=== PATIENT | male | born 1970 | race Caucasian/White ===

== ENCOUNTER 2019-05-01 19:09 | Inpatient (IN) | payer OTHER ==
[2019-05-01 19:58] VITALS: BMI 22.4
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
[2019-05-01] MEDS ORDERED: MAGNESIUM HYDROX 2400MG/30ML ORAL SUSPENSION 30 ML CUP PO PRN (23:43)
[2019-05-01] MEDS ORDERED: MELATONIN 5 MG TABLETS PO PRN (23:43)
[2019-05-01] MEDS ORDERED: BISMUTH SUBSALICYLATE 524 MG/30 ML UD PO PRN (23:43)
[2019-05-01] MEDS ORDERED: MAG HYDROX/AL HYDROX/SIMETH 30 ML UNIT-DOSE CUP PO PRN (23:43)
[2019-05-01] MEDS ORDERED: ACETAMINOPHEN 325 MG TABLET (FP) PO PRN ×2 (23:43)
[2019-05-01] MEDS ORDERED: METHOCARBAMOL 500 MG TABLET PO PRN (23:43)
[2019-05-01] MEDS ORDERED: hydrOXYzine PAMOATE 25 MG CAPSULE (FP) PO PRN (23:43)
[2019-05-01] MEDS ORDERED: IBUPROFEN 400 MG TABLET (FP) PO PRN (23:43)
[2019-05-01] MEDS ORDERED: MAGNESIUM CITRATE 300 ML BOTTLE PO PRN (23:43)
[2019-05-02] MEDS: chlordiazePOXIDE HCL 25 MG CAPSULE PO PRN (01:04)
[2019-05-02] MEDS: chlordiazePOXIDE HCL 25 MG CAPSULE PO SCH ×4 (05:10→22:12)
[2019-05-02 09:58] LABS: HEMATOCRIT 39.7 % (35.4-49); HEMOGLOBIN 13.6 GM/dL (11.7-16.9); MCH 35.3 pg (25.7-33.7); MCHC 34.3 g/dl (32.0-35.9); MEAN CELL VOLUME 102.8 fl (80-96); MEAN PLT VOLUME 8.4 fl (7.5-11.1); PLATELET COUNT 254 K/MM3 (134-434); RBC 3.86 M/mm3 (4.00-5.60); RDW 12.5 % (11.9-15.9); WHITE BLOOD COUNT 3.7 K/mm3 (4.0-10.0)
[2019-05-02 10:12] LABS: ALBUMIN 3.7 g/dl (3.4-5.0); BILIRUBIN,TOTAL 0.3 mg/dL (0.2-1); BLOOD UREA NITROGEN 11.9 mg/dL (7-18); CREATININE 0.8 mg/dL (0.55-1.3); POTASSIUM 3.8 mmol/L (3.5-5.1); TOT PROT 6.3 g/dl (6.4-8.2)
[2019-05-02] MEDS: PRENATAL VITAMINS W/ FOLIC ACID TABLET (FP) PO SCH (10:17)
--- NOTE | 2019-05-02 10:20 | PN ---
S CIWA - CIWA Score Nausea/Vomitin-Mild Nausea/No Vomiting Muscle Tremors: 4-Moderate,w/Arms Extend Anxiety: 3 Agitation: 3 Paroxysmal Sweats: 2 Orientation: 0-Oriented Tacttile Disturbances: 1-Very Mild Itch/Numbness Auditory Disturbances: 0-None Visual Disturbances: 0-None Headache: 1-Very Mild CIWA-Ar Total Score: 15 BHS Progress Note (SOAP) Subjective: 48 years old male admitted on 05/01/19 for alcohol withdrawal sx management treated with librium detox regimen ate breakfast ambulating on hallway discuss aftercare with staff patient is in good spirit to detox off from alcohol Objective: 05/02/19 10:19 Vital Signs Temperature 98.4 F 05/02/19 09:08 Pulse Rate 87 05/02/19 09:08 Respiratory Rate 18 05/02/19 09:08 Blood Pressure 128/78 05/02/19 09:08 O2 Sat by Pulse Oximetry (%) Laboratory Last Values WBC 3.7 K/mm3 (4.0-10.0) L 05/02/19 08:00 RBC 3.86 M/mm3 (4.00-5.60) L 05/02/19 08:00 Hgb 13.6 GM/dL (11.7-16.9) 05/02/19 08:00 Hct 39.7 % (35.4-49) 05/02/19 08:00 MCV 102.8 fl (80-96) H 05/02/19 08:00 MCH 35.3 pg (25.7-33.7) H 05/02/19 08:00 MCHC 34.3 g/dl (32.0-35.9) 05/02/19 08:00 RDW 12.5 % (11.9-15.9) D 05/02/19 08:00 Plt Count 254 K/MM3 (134-434) D 05/02/19 08:00 MPV 8.4 fl (7.5-11.1) 05/02/19 08:00 Sodium 140 mmol/L (136-145) 05/02/19 08:00 Potassium 3.8 mmol/L (3.5-5.1) 05/02/19 08:00 Chloride 102 mmol/L (98-107) 05/02/19 08:00 Carbon Dioxide 29 mmol/L (21-32) 05/02/19 08:00 Anion Gap 10 MMOL/L (8-16) 05/02/19 08:00 BUN 11.9 mg/dL (7-18) 05/02/19 08:00 Creatinine 0.8 mg/dL (0.55-1.3) 05/02/19 08:00 Est GFR (CKD-EPI)AfAm 122.43 05/02/19 08:00 Est GFR (CKD-EPI)NonAf 105.63 05/02/19 08:00 Random Glucose 118 mg/dL (74-106) H 05/02/19 08:00 Calcium 9.0 mg/dL (8.5-10.1) 05/02/19 08:00 Total Bilirubin 0.3 mg/dL (0.2-1) 05/02/19 08:00 AST 44 U/L (15-37) H 05/02/19 08:00 ALT 42 U/L (13-61) 05/02/19 08:00 Alkaline Phosphatase 84 U/L (45-117) 05/02/19 08:00 Total Protein 6.3 g/dl (6.4-8.2) L 05/02/19 08:00 Albumin 3.7 g/dl (3.4-5.0) 05/02/19 08:00 lab noted Assessment: 05/02/19 10:19 alcohol withdrawal sx Plan: continue librium detox regimen
--- NOTE | 2019-05-02 10:45 | EKG ---
Test Reason : Blood Pressure : / mmHG Vent. Rate : 071 BPM Atrial Rate : 071 BPM P-R Int : 140 ms QRS Dur : 092 ms QT Int : 404 ms P-R-T Axes : 074 075 097 degrees QTc Int : 439 ms NORMAL SINUS RHYTHM NORMAL ECG Confirmed by MD BECKY, ALBERTO ([id number]) on 05/02/2019 10:44:49 AM Referred By: Confirmed By:ALBERTO PENA MD
[2019-05-02] MEDS ORDERED: chlordiazePOXIDE HCL 25 MG CAPSULE PO ONE (14:00)
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
[2019-05-02] MEDS: busPIRone HCL 5 MG TABLET PO SCH (22:12)
[2019-05-02] MEDS: traZODone HCL 100 MG TABLET (FP) PO SCH (22:12)
[2019-05-02] MEDS: THIAMINE HCL 100 MG TABLET (FP) PO SCH (22:12)
[2019-05-03] MEDS: chlordiazePOXIDE HCL 25 MG CAPSULE PO SCH ×4 (05:24→22:02)
[2019-05-03] MEDS: PRENATAL VITAMINS W/ FOLIC ACID TABLET (FP) PO SCH (10:03)
[2019-05-03] MEDS: busPIRone HCL 5 MG TABLET PO SCH ×2 (10:03→22:02)
--- NOTE | 2019-05-03 13:16 | PN ---
[facility] CIWA - CIWA Score Nausea/Vomitin-Mild Nausea/No Vomiting Muscle Tremors: 3 Anxiety: 3 Agitation: 1-Slight > Activity Paroxysmal Sweats: 2 Orientation: 0-Oriented Tacttile Disturbances: 0-None Auditory Disturbances: 0-None Visual Disturbances: 0-None Headache: 1-Very Mild CIWA-Ar Total Score: 11 S Progress Note (SOAP) Subjective: 48 years old male admitted on 05/01/19 for alcohol withdrawal sx management treated with librium detox regimen feeling better today that slept through the night showered discuss aftercare with staff Objective: 05/03/19 13:31 Vital Signs Temperature 97.0 F L 05/03/19 13:09 Pulse Rate 78 05/03/19 13:09 Respiratory Rate 18 05/03/19 13:09 Blood Pressure 114/78 05/03/19 13:09 O2 Sat by Pulse Oximetry (%) Laboratory Last Values WBC 3.7 K/mm3 (4.0-10.0) L 05/02/19 08:00 RBC 3.86 M/mm3 (4.00-5.60) L 05/02/19 08:00 Hgb 13.6 GM/dL (11.7-16.9) 05/02/19 08:00 Hct 39.7 % (35.4-49) 05/02/19 08:00 MCV 102.8 fl (80-96) H 05/02/19 08:00 MCH 35.3 pg (25.7-33.7) H 05/02/19 08:00 MCHC 34.3 g/dl (32.0-35.9) 05/02/19 08:00 RDW 12.5 % (11.9-15.9) D 05/02/19 08:00 Plt Count 254 K/MM3 (134-434) D 05/02/19 08:00 MPV 8.4 fl (7.5-11.1) 05/02/19 08:00 Sodium 140 mmol/L (136-145) 05/02/19 08:00 Potassium 3.8 mmol/L (3.5-5.1) 05/02/19 08:00 Chloride 102 mmol/L (98-107) 05/02/19 08:00 Carbon Dioxide 29 mmol/L (21-32) 05/02/19 08:00 Anion Gap 10 MMOL/L (8-16) 05/02/19 08:00 BUN 11.9 mg/dL (7-18) 05/02/19 08:00 Creatinine 0.8 mg/dL (0.55-1.3) 05/02/19 08:00 Est GFR (CKD-EPI)AfAm 122.43 05/02/19 08:00 Est GFR (CKD-EPI)NonAf 105.63 05/02/19 08:00 Random Glucose 118 mg/dL (74-106) H 05/02/19 08:00 Calcium 9.0 mg/dL (8.5-10.1) 05/02/19 08:00 Total Bilirubin 0.3 mg/dL (0.2-1) 05/02/19 08:00 AST 44 U/L (15-37) H 05/02/19 08:00 ALT 42 U/L (13-61) 05/02/19 08:00 Alkaline Phosphatase 84 U/L (45-117) 05/02/19 08:00 Total Protein 6.3 g/dl (6.4-8.2) L 05/02/19 08:00 Albumin 3.7 g/dl (3.4-5.0) 05/02/19 08:00 RPR Titer Nonreactive (NONREACTIVE) 05/02/19 08:00 lab noted Assessment: 05/03/19 13:31 alcohol withdrawal sx Plan: continue librium detox regimen
[2019-05-03] MEDS: chlordiazePOXIDE HCL 25 MG CAPSULE PO PRN (14:35)
[2019-05-03] MEDS: traZODone HCL 100 MG TABLET (FP) PO SCH (22:02)
[2019-05-03] MEDS: THIAMINE HCL 100 MG TABLET (FP) PO SCH (22:02)
[2019-05-04] MEDS ORDERED: chlordiazePOXIDE HCL 10 MG CAPSULE PO PRN
[2019-05-04] MEDS: chlordiazePOXIDE HCL 10 MG CAPSULE PO SCH ×4 (05:53→22:27)
[2019-05-04] MEDS: busPIRone HCL 5 MG TABLET PO SCH ×2 (10:10→22:27)
[2019-05-04] MEDS: PRENATAL VITAMINS W/ FOLIC ACID TABLET (FP) PO SCH (10:10)
--- NOTE | 2019-05-04 13:22 | PN ---
[facility] CIWA - CIWA Score Nausea/Vomitin-Mild Nausea/No Vomiting Muscle Tremors: 2 Anxiety: 2 Agitation: 2 Paroxysmal Sweats: 1-Minimal Palms Moist Orientation: 0-Oriented Tacttile Disturbances: 0-None Auditory Disturbances: 0-None Visual Disturbances: 0-None Headache: 0-None Present CIWA-Ar Total Score: 8 S Progress Note (SOAP) Subjective: 48 YEARS OLD MALE ADMITTED ON 05/01/19 FOR ALCOHOL WITHDRAWAL SX MANAGEMENT TREATED WITH LIBRIUM DETOX REGIMEN FEELING BETTER TODAY SLEPT THROUGH THE NIGHT DISCUSS AFTERCARE WITH STAFF Objective: 05/04/19 13:22 Vital Signs Temperature 97.2 F L 05/04/19 13:00 Pulse Rate 69 05/04/19 13:00 Respiratory Rate 18 05/04/19 13:00 Blood Pressure 114/78 05/04/19 13:00 O2 Sat by Pulse Oximetry (%) Laboratory Last Values WBC 3.7 K/mm3 (4.0-10.0) L 05/02/19 08:00 RBC 3.86 M/mm3 (4.00-5.60) L 05/02/19 08:00 Hgb 13.6 GM/dL (11.7-16.9) 05/02/19 08:00 Hct 39.7 % (35.4-49) 05/02/19 08:00 MCV 102.8 fl (80-96) H 05/02/19 08:00 MCH 35.3 pg (25.7-33.7) H 05/02/19 08:00 MCHC 34.3 g/dl (32.0-35.9) 05/02/19 08:00 RDW 12.5 % (11.9-15.9) D 05/02/19 08:00 Plt Count 254 K/MM3 (134-434) D 05/02/19 08:00 MPV 8.4 fl (7.5-11.1) 05/02/19 08:00 Sodium 140 mmol/L (136-145) 05/02/19 08:00 Potassium 3.8 mmol/L (3.5-5.1) 05/02/19 08:00 Chloride 102 mmol/L (98-107) 05/02/19 08:00 Carbon Dioxide 29 mmol/L (21-32) 05/02/19 08:00 Anion Gap 10 MMOL/L (8-16) 05/02/19 08:00 BUN 11.9 mg/dL (7-18) 05/02/19 08:00 Creatinine 0.8 mg/dL (0.55-1.3) 05/02/19 08:00 Est GFR (CKD-EPI)AfAm 122.43 05/02/19 08:00 Est GFR (CKD-EPI)NonAf 105.63 05/02/19 08:00 Random Glucose 118 mg/dL (74-106) H 05/02/19 08:00 Calcium 9.0 mg/dL (8.5-10.1) 05/02/19 08:00 Total Bilirubin 0.3 mg/dL (0.2-1) 05/02/19 08:00 AST 44 U/L (15-37) H 05/02/19 08:00 ALT 42 U/L (13-61) 05/02/19 08:00 Alkaline Phosphatase 84 U/L (45-117) 05/02/19 08:00 Total Protein 6.3 g/dl (6.4-8.2) L 05/02/19 08:00 Albumin 3.7 g/dl (3.4-5.0) 05/02/19 08:00 RPR Titer Nonreactive (NONREACTIVE) 05/02/19 08:00 LAB NOTED Assessment: 05/04/19 13:23 ALCOHOL WITHDRAWAL SX Plan: CONTINUE LIBRIUM DETOX REGIMEN
[2019-05-04] MEDS: THIAMINE HCL 100 MG TABLET (FP) PO SCH (22:27)
[2019-05-04] MEDS: traZODone HCL 100 MG TABLET (FP) PO SCH (22:27)
[2019-05-04] MEDS: MENTHOL/PHENOL 1 EACH UD MM PRN (22:30)
[2019-05-05] MEDS: chlordiazePOXIDE HCL 10 MG CAPSULE PO SCH ×2 (05:55→17:13)
[2019-05-05] MEDS: PRENATAL VITAMINS W/ FOLIC ACID TABLET (FP) PO SCH (10:10)
[2019-05-05] MEDS: busPIRone HCL 5 MG TABLET PO SCH ×2 (10:10→21:28)
--- NOTE | 2019-05-05 14:18 | PN ---
S CIWA - CIWA Score Nausea/Vomitin-No Nausea/No Vomiting Muscle Tremors: 1-None Visible, but [place] Anxiety: 1-Mildly Anxious Agitation: 2 Paroxysmal Sweats: No Perspiration Orientation: 0-Oriented Tacttile Disturbances: 1-Very Mild Itch/Numbness Auditory Disturbances: 0-None Visual Disturbances: 0-None Headache: 1-Very Mild CIWA-Ar Total Score: 6 BHS Progress Note (SOAP) Subjective: alert,irritable,anxious,interrupted sleep, Objective: 05/05/19 14:17 Vital Signs Temperature 96.4 F L 05/05/19 13:39 Pulse Rate 68 05/05/19 13:39 Respiratory Rate 18 05/05/19 13:39 Blood Pressure 120/78 05/05/19 13:39 O2 Sat by Pulse Oximetry (%) Assessment: 05/05/19 14:18 withdrawal symptom Plan: continue detox,librium regimen,discharge in am
[2019-05-05] MEDS: traZODone HCL 100 MG TABLET (FP) PO SCH (21:28)
[2019-05-05] MEDS: THIAMINE HCL 100 MG TABLET (FP) PO SCH (21:28)
[2019-05-05] MEDS: MENTHOL/PHENOL 1 EACH UD MM PRN (21:30)
[2019-05-06] MEDS ORDERED: chlordiazePOXIDE HCL 10 MG CAPSULE PO ONE (05:00)
[2019-05-06 09:18] VITALS: BP 120/80; PULSE 67; TEMP 96.2
--- NOTE | 2019-05-06 12:28 | PN ---
[facility] Progress Note Note: Psychiatry Attending's note (follow-up) : Mask Inspector had met with patient on 07/05/18. Issue discussed : disulfiram + psychiatric aftercare. Mr Henry has admitted to heavy ETOH abuse. Has also reported antecedent of severe medical issues with Antabuse. Alternates (acamprosate, naltrexone) were presented to the patient. He declines. Patient was also offered option of transition to rehabilitation. Refused. " I am working on my own referral. I plan to contact [facility] for follow-up." Discharging this patient on Antabuse is not appropriate or safe (was not observed on that drug at [address] [place] [address]). Particularly in view of history of severe medical issue following intake of the drug in current context of ongoing ETOH abuse.
--- NOTE | 2019-05-06 14:51 | DS ---
[facility] Detox Discharge Summary Admission Date: 05/02/19 Discharge Date: 05/06/19 - History Present History: Alcohol Dependence Additional Comments: Pt is medically cleared and is discharged today. Pt completed his detox protocol. Pt is instructed to follow-up with [facility] outpatient program and also to follow-up with his PMD. Pt verbalized understanding. Pt is alert and oriented x3 and in no respiratory distress. Pertinent Past History: h/o alcohol use disorder. - Physical Exam Results Vital Signs: Vital Signs Temperature 96.2 F L 05/06/19 09:18 Pulse Rate 67 05/06/19 09:18 Respiratory Rate 18 05/06/19 09:18 Blood Pressure 120/80 05/06/19 09:18 O2 Sat by Pulse Oximetry (%) Pertinent Admission Physical Exam Findings: Withdrawal symptoms. - Treatment Hospital Course: Detox Protocol Followed, Detoxed Safely, Responded well, Discharged Condition Good - Medication Discharge Medications: Ambulatory Orders traZODone HCL [Desyrel -] 100 mg PO HS 10/24/13 traZODone HCL [Trazodone HCl] 100 mg PO HS #30 tablet 05/06/19 - Diagnosis (1) Elevated blood sugar Status: Acute (2) Alcohol use disorder Status: Chronic - AMA Did Patient Leave Against Medical Advice: No
== END 2019-05-06 09:18 | disposition home or self-care (01) | DRG 775 ==
LOC: YASAS 19:09 → Y3N 05-02 00:01
PROVIDERS: ADMIT Allergy & Immunology; ATTEND Allergy & Immunology
PROC: HZ2ZZZZ Detoxification Services for Substance Abuse Treatment (ICD-10-PCS; principal; 2019-05-02)
DX: F10.230 Alcohol dependence with withdrawal, uncomplicated (principal); F19.24 Other psychoactive substance dependence with psychoactive substance-induced mood disorder; F32.9 Major depressive disorder, single episode, unspecified; F43.10 Post-traumatic stress disorder, unspecified; G47.00 Insomnia, unspecified; R73.9 Hyperglycemia, unspecified
CPT/HCPCS: 36415; 80053; 85027; 86593; 93005; 93010

== ENCOUNTER 2019-05-29 13:32 | Inpatient (IN) | payer OTHER ==
[2019-05-29 14:11] VITALS: BMI 21.9
--- NOTE | 2019-05-29 15:48 | HP ---
CIWA Score Nausea/Vomitin-Mild Nausea/No Vomiting Muscle Tremors: 4-Moderate,w/Arms Extend Anxiety: 4-Mod. Anxious/Guarded Agitation: 4-Moderately Restless Paroxysmal Sweats: 3 Orientation: 0-Oriented Tacttile Disturbances: 0-None Auditory Disturbances: 0-None Visual Disturbances: 0-None Headache: 1-Very Mild CIWA-Ar Total Score: 17 - Admission Criteria OASAS Guidelines: Admission for Medically Managed Detox: Requires at least one of the followin. CIWA greater than 12 2. Seizures within the past 24 hours 3. Delirium tremens within the past 24 hours 4. Hallucinations within the past 24 hours 5. Acute intervention needed for co occurring medical disorder 6. Acute intervention needed for co occurring psychiatric disorder 7. Severe withdrawal that cannot be handled at a lower level of care (continued vomiting, continued diarrhea, abnormal vital signs) requiring intravenous medication and/or fluids 8. Admitting History and Physical - Admission Chief Complaint: I want to stop drinking alcohol. History Source: Patient Limitations to Obtaining History: Intoxication - Past Medical History Cardiovascular: Yes: Hyperlipdemia Pulmonary: Yes: Asthma Hepatobiliary: Yes: Other (h/o pancreatitis) Additional Past Medical History: h/o broken jaw with titanium placement h/o fall injury to left knee. pt went to his PCP, x-ray taken pt has no results yet. - Smoking History Smoking history: Current some day smoker Have you smoked in the past 12 months: No - Alcohol/Substance Use Hx Alcohol Use: Yes History of Substance Use: reports: None - Social History Usual Living Arrangement: Yes: With Significant Other Do you think of yourself as: Straight/Heterosexual ADL: Independent History of Recent Travel: No Admission ROS [facility] Chief Complaint: I want to stop drinking alcohol. Allergies/Adverse Reactions: Allergies Allergy/AdvReac Type Severity Reaction Status Date / Time No Known Drug Allergies Allergy Verified 05/29/19 14:00 lactose AdvReac LACTOSE Verified 05/29/19 14:00 INTOLERANCE lactose intolerance AdvReac Mild Uncoded 05/29/19 14:00 History of Present Illness: pt is a 48yrold male with a history of alcohol dependence seeking detox for treatment. Exam Limitations: Intoxication - Ebola screening Have you traveled outside of the country in the last 21 days: No Have you had contact with anyone from an Ebola affected area: No Have you been sick,other than usual withdrawal symptoms: No Do you have a fever: No - Review of Systems Constitutional: Chills, Diaphoresis, Night Sweats EENT: reports: Other (pain around jaw d/t jaw injury 2months ago) Cardiac: reports: No Symptoms Reported GI: reports: Poor Appetite, Poor Fluid Intake : reports: No Symptoms Reported Musculoskeletal: reports: Joint Pain (left knee injury d/t fall) Integumentary: reports: Bruising (on left knee) Neuro: reports: No Symptoms reported Endocrine: reports: Excessive Sweating Psychiatric: reports: Judgement Intact, Mood/Affect Appropiate, Orientated x3, Agitated, Anxious Other Systems: Reviewed and Negative Patient History - Patient Medical History Hx Anemia: No Hx Asthma: No Hx Chronic Obstructive Pulmonary Disease (COPD): No Hx Cancer: No Hx Cardiac Disorders: No Hx Congestive Heart Failure: No Hx Hypertension: No Hx Hypercholesterolemia: Yes (hx of triglycerides r/t alcohol) Hx Pacemaker: No HX Cerebrovascular Accident: No Hx Seizures: No Hx Dementia: No Hx Diabetes: No Hx Gastrointestinal Disorders: No Hx Liver Disease: No Hx Genitourinary Disorders: No Hx Sexually Transmitted Disorders: No Hx Renal Disease (ESRD): No Hx Thyroid Disease: No Hx Human Immunodeficiency Virus (HIV): No (negative a few months ago) Hx Hepatitis C: No Hx Depression: Yes Hx Suicide Attempt: No Hx Bipolar Disorder: No Hx Schizophrenia: No - Patient Surgical History Past Surgical History: Yes Hx Neurologic Surgery: No Hx Cataract Extraction: No Hx Cardiac Surgery: No Hx Lung Surgery: No Hx Breast Surgery: No Hx Breast Biopsy: No Hx Abdominal Surgery: No Hx Appendectomy: No Hx Cholecystectomy: No Hx Genitourinary Surgery: No Hx Section: No Hx Orthopedic Surgery: Yes (fx to rt tibia/metatarsaus and left metatarsals) Hx Hysterectomy: No Other Surgical History: SURGERY TO LEFT JAW 04/28/19- METAL PLATE INSERTION Anesthesia Reaction: No - PPD History Date: 04/30/19 PPD to be Administered?: No - Reproductive History Patient is a Female of Child Bearing Age (11 -55 yrs old): No - Smoking Cessation Smoking history: Former smoker Have you smoked in the past 12 months: No Hx Chewing Tobacco Use: No Initiated information on smoking cessation: Yes 'Breaking Loose' booklet given: 05/29/19 - Substance & Tx. History Hx Alcohol Use: Yes Substance Use Type: Alcohol Hx Substance Use Treatment: Yes (last detox 04/2019) - Substances abused Alcohol Substance route: Oral Frequency: Daily Amount used: 4 to 5 pints of vodka Age of first use: 33 Date of last use: 05/29/19 Admission Physical Exam [facility] - Vital Signs Vital Signs: Vital Signs - 24 hr 05/29/19 14:03 Temperature 96.4 F L Pulse Rate 84 Respiratory 16 Rate Blood Pressure 112/76 - Physical General Appearance: Yes: Appropriately Dressed, Intoxicated, Thin, Tremorous, Irritable, Sweating, Anxious HEENTM: Yes: Nasal Congestion, Rhinorrhea Respiratory: Yes: Normal Breath Sounds, Decreased Breath Sounds Neck: Yes: No masses,lesions,Nodules Breast: Yes: Within Normal Limits Cardiology: Yes: Regular Rhythm, Regular Rate Abdominal: Yes: Normal Bowel Sounds Genitourinary: Yes: Within Normal Limits Back: Yes: Normal Inspection Musculoskeletal: Yes: full range of Motion Extremities: Yes: Normal Capillary Refill, Normal Inspection Neurological: Yes: Fully Oriented, Normal Response Integumentary: Yes: Normal Color, Diaphoresis Lymphatic: Yes: Within Normal Limits - Diagnostic (1) Anxiety Current Visit: Yes Status: Chronic (2) Depression Current Visit: Yes Status: Chronic (3) H/O gastroesophageal reflux (GERD) Current Visit: No Status: Acute (4) Panic disorder Current Visit: No Status: Acute (5) History of depression Current Visit: No Status: Chronic Comment: Non-adherent to medications. (6) Insomnia Current Visit: No Status: Chronic (7) PTSD (post-traumatic stress disorder) Current Visit: Yes Status: Chronic (8) Substance induced mood disorder Current Visit: No Status: Chronic (9) Alcohol dependence with withdrawal, uncomplicated Current Visit: Yes Status: Chronic (10) Injury of mandible Current Visit: No Status: Chronic Qualifiers: Encounter type: sequela Qualified Code(s): S09.93XS - Unspecified injury of face, sequela (11) Knee injuries Current Visit: Yes Status: Acute Qualifiers: Encounter type: initial encounter Laterality: left Qualified Code(s): S89.92XA - Unspecified injury of left lower leg, initial encounter Cleared for Admission [facility] - Detox or Rehab [facility] Level of Care: Medically Managed Detox Regimen/Protocol: Librium Claeared for Rehab Admission: No Breathalyzer - Breathalyzer Breathalyzer: 0.232 Urine Drug Screen - Test Device Lot number: [id number] Expiration date: 01/11/21 - Control Is test valid?: Yes - Results Drug screen NEGATIVE: Yes Inpatient Rehab Admission - Rehab Decision to Admit Inpatient rehab admission?: No
[2019-05-29] MEDS ORDERED: chlordiazePOXIDE HCL 25 MG CAPSULE PO PRN (15:55)
[2019-05-29] MEDS ORDERED: hydrOXYzine PAMOATE 25 MG CAPSULE (FP) PO PRN (15:56)
[2019-05-29] MEDS ORDERED: ACETAMINOPHEN 325 MG TABLET (FP) PO PRN ×2 (15:56)
[2019-05-29] MEDS ORDERED: MAGNESIUM HYDROX 2400MG/30ML ORAL SUSPENSION 30 ML CUP PO PRN (15:56)
[2019-05-29] MEDS ORDERED: MAGNESIUM CITRATE 300 ML BOTTLE PO PRN (15:56)
[2019-05-29] MEDS ORDERED: IBUPROFEN 400 MG TABLET (FP) PO PRN (15:56)
[2019-05-29] MEDS ORDERED: ONDANSETRON *ODT* 4 MG TABLET SL PRN (15:56)
[2019-05-29] MEDS ORDERED: BISMUTH SUBSALICYLATE 524 MG/30 ML UD PO PRN (15:56)
[2019-05-29] MEDS ORDERED: MAG HYDROX/AL HYDROX/SIMETH 30 ML UNIT-DOSE CUP PO PRN (15:56)
[2019-05-29] MEDS ORDERED: METHOCARBAMOL 500 MG TABLET PO PRN (15:56)
[2019-05-29] MEDS ORDERED: MENTHOL/PHENOL 1 EACH UD MM PRN (15:56)
[2019-05-29] MEDS: chlordiazePOXIDE HCL 25 MG CAPSULE PO SCH ×2 (18:55→22:26)
[2019-05-29] MEDS: THIAMINE HCL 100 MG TABLET (FP) PO SCH (22:26)
[2019-05-29] MEDS: MELATONIN 5 MG TABLETS PO PRN (22:27)
[2019-05-30] MEDS: chlordiazePOXIDE HCL 25 MG CAPSULE PO SCH ×4 (06:15→22:50)
[2019-05-30] MEDS: IBUPROFEN 600 MG TABLET (FP) PO PRN (06:16)
--- NOTE | 2019-05-30 09:49 | EKG ---
Test Reason : Blood Pressure : / mmHG Vent. Rate : 078 BPM Atrial Rate : 078 BPM P-R Int : 150 ms QRS Dur : 094 ms QT Int : 388 ms P-R-T Axes : 075 064 065 degrees QTc Int : 442 ms NORMAL SINUS RHYTHM NORMAL ECG WHEN COMPARED WITH ECG OF 02-MAY-2019 06:53, NO SIGNIFICANT CHANGE WAS FOUND Confirmed by MD Willie, Laureano ([id number]) on 05/30/2019 9:49:18 AM Referred By: JEFFREY Confirmed By:Laureano Tapia MD
[2019-05-30 09:51] LABS: HEMATOCRIT 36.9 % (35.4-49); HEMOGLOBIN 12.6 GM/dL (11.7-16.9); MCH 34.9 pg (25.7-33.7); MEAN CELL VOLUME 102.6 fl (80-96); PLATELET COUNT 230 K/MM3 (134-434); RDW 13.2 % (11.9-15.9); WHITE BLOOD COUNT 3.7 K/mm3 (4.0-10.0)
[2019-05-30] MEDS: NICOTINE 21 MG/24 HOURS TOPICAL PATCH TD SCH (10:19)
[2019-05-30] MEDS: PRENATAL VITAMINS W/ FOLIC ACID TABLET (FP) PO SCH (10:20)
[2019-05-30] MEDS: METHYL SALICYLATE/MENTHOL OINT 30 GM TUBE TP SCH (10:20)
--- NOTE | 2019-05-30 10:21 | PN ---
S CIWA - CIWA Score Nausea/Vomitin-Mild Nausea/No Vomiting Muscle Tremors: 2 Anxiety: 3 Agitation: 3 Paroxysmal Sweats: No Perspiration Orientation: 0-Oriented Tacttile Disturbances: 1-Very Mild Itch/Numbness Auditory Disturbances: 0-None Visual Disturbances: 0-None Headache: 2-Mild CIWA-Ar Total Score: 12 BHS Progress Note (SOAP) Subjective: alert,irritable,anxious,interrupted sleep,tremor,pain in the body Objective: 05/30/19 10:19 Vital Signs Temperature 97.6 F 05/30/19 09:23 Pulse Rate 79 05/30/19 09:23 Respiratory Rate 18 05/30/19 09:23 Blood Pressure 140/79 05/30/19 09:23 O2 Sat by Pulse Oximetry (%) Laboratory Last Values WBC 3.7 K/mm3 (4.0-10.0) L 05/30/19 08:00 RBC 3.60 M/mm3 (4.00-5.60) L 05/30/19 08:00 Hgb 12.6 GM/dL (11.7-16.9) 05/30/19 08:00 Hct 36.9 % (35.4-49) 05/30/19 08:00 MCV 102.6 fl (80-96) H 05/30/19 08:00 MCH 34.9 pg (25.7-33.7) H 05/30/19 08:00 MCHC 34.0 g/dl (32.0-35.9) 05/30/19 08:00 RDW 13.2 % (11.9-15.9) 05/30/19 08:00 Plt Count 230 K/MM3 (134-434) 05/30/19 08:00 MPV 8.0 fl (7.5-11.1) 05/30/19 08:00 labs pending Assessment: 05/30/19 10:20 withdrawal symptom Plan: continue detox librium regimen
[2019-05-30 10:38] LABS: ALBUMIN 3.4 g/dl (3.4-5.0); BILIRUBIN,TOTAL 0.6 mg/dL (0.2-1); BLOOD UREA NITROGEN 12.6 mg/dL (7-18); CREATININE 0.8 mg/dL (0.55-1.3); POTASSIUM 4.2 mmol/L (3.5-5.1)
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
[2019-05-30] MEDS: traZODone HCL 100 MG TABLET (FP) PO SCH (22:50)
[2019-05-30] MEDS: THIAMINE HCL 100 MG TABLET (FP) PO SCH (22:50)
[2019-05-30] MEDS: busPIRone HCL 5 MG TABLET PO SCH (22:53)
[2019-05-31] MEDS: IBUPROFEN 600 MG TABLET (FP) PO PRN (05:44)
[2019-05-31] MEDS: chlordiazePOXIDE HCL 25 MG CAPSULE PO SCH ×4 (05:44→22:05)
[2019-05-31] MEDS: NICOTINE 21 MG/24 HOURS TOPICAL PATCH TD SCH (10:14)
[2019-05-31] MEDS: busPIRone HCL 5 MG TABLET PO SCH ×2 (10:14→22:05)
[2019-05-31] MEDS: METHYL SALICYLATE/MENTHOL OINT 30 GM TUBE TP SCH (10:14)
[2019-05-31] MEDS: PRENATAL VITAMINS W/ FOLIC ACID TABLET (FP) PO SCH (10:14)
--- NOTE | 2019-05-31 10:39 | PN ---
[facility] CIWA - CIWA Score Nausea/Vomitin-No Nausea/No Vomiting Muscle Tremors: 1-None Visible, but [place] Anxiety: 2 Agitation: 2 Paroxysmal Sweats: No Perspiration Orientation: 0-Oriented Tacttile Disturbances: 1-Very Mild Itch/Numbness Auditory Disturbances: 0-None Visual Disturbances: 0-None Headache: 1-Very Mild CIWA-Ar Total Score: 7 S Progress Note (SOAP) Subjective: alert,irritable,anxious,interrupted sleep,pain in the body Objective: 05/31/19 10:38 Vital Signs Temperature 97.3 F L 05/31/19 09:55 Pulse Rate 57 L 05/31/19 09:55 Respiratory Rate 18 05/31/19 09:55 Blood Pressure 120/73 05/31/19 09:55 O2 Sat by Pulse Oximetry (%) Laboratory Last Values WBC 3.7 K/mm3 (4.0-10.0) L 05/30/19 08:00 RBC 3.60 M/mm3 (4.00-5.60) L 05/30/19 08:00 Hgb 12.6 GM/dL (11.7-16.9) 05/30/19 08:00 Hct 36.9 % (35.4-49) 05/30/19 08:00 MCV 102.6 fl (80-96) H 05/30/19 08:00 MCH 34.9 pg (25.7-33.7) H 05/30/19 08:00 MCHC 34.0 g/dl (32.0-35.9) 05/30/19 08:00 RDW 13.2 % (11.9-15.9) 05/30/19 08:00 Plt Count 230 K/MM3 (134-434) 05/30/19 08:00 MPV 8.0 fl (7.5-11.1) 05/30/19 08:00 Sodium 140 mmol/L (136-145) 05/30/19 08:00 Potassium 4.2 mmol/L (3.5-5.1) 05/30/19 08:00 Chloride 102 mmol/L (98-107) 05/30/19 08:00 Carbon Dioxide 29 mmol/L (21-32) 05/30/19 08:00 Anion Gap 8 MMOL/L (8-16) 05/30/19 08:00 BUN 12.6 mg/dL (7-18) 05/30/19 08:00 Creatinine 0.8 mg/dL (0.55-1.3) 05/30/19 08:00 Est GFR (CKD-EPI)AfAm 122.43 05/30/19 08:00 Est GFR (CKD-EPI)NonAf 105.63 05/30/19 08:00 Random Glucose 89 mg/dL (74-106) 05/30/19 08:00 Calcium 9.0 mg/dL (8.5-10.1) 05/30/19 08:00 Total Bilirubin 0.6 mg/dL (0.2-1) 05/30/19 08:00 AST 31 U/L (15-37) 05/30/19 08:00 ALT 27 U/L (13-61) 05/30/19 08:00 Alkaline Phosphatase 67 U/L (45-117) 05/30/19 08:00 Total Protein 6.0 g/dl (6.4-8.2) L 05/30/19 08:00 Albumin 3.4 g/dl (3.4-5.0) 05/30/19 08:00 RPR Titer Nonreactive (NONREACTIVE) 05/30/19 08:00 Assessment: 05/31/19 10:39 withdrawal symptom Plan: continue detox librium regimen
[2019-05-31] MEDS: THIAMINE HCL 100 MG TABLET (FP) PO SCH (22:05)
[2019-05-31] MEDS: traZODone HCL 100 MG TABLET (FP) PO SCH (22:05)
[2019-06-01] MEDS: chlordiazePOXIDE HCL 10 MG CAPSULE PO SCH ×4 (05:17→22:03)
[2019-06-01] MEDS: IBUPROFEN 600 MG TABLET (FP) PO PRN (05:18)
[2019-06-01] MEDS: busPIRone HCL 5 MG TABLET PO SCH ×2 (10:23→22:04)
[2019-06-01] MEDS: PRENATAL VITAMINS W/ FOLIC ACID TABLET (FP) PO SCH (10:23)
[2019-06-01] MEDS: NICOTINE 21 MG/24 HOURS TOPICAL PATCH TD SCH (10:24)
[2019-06-01] MEDS: METHYL SALICYLATE/MENTHOL OINT 30 GM TUBE TP SCH (10:24)
--- NOTE | 2019-06-01 10:56 | PN ---
S CIWA - CIWA Score Nausea/Vomitin-No Nausea/No Vomiting Muscle Tremors: 1-None Visible, but [place] Anxiety: 2 Agitation: 1-Slight > Activity Paroxysmal Sweats: No Perspiration Orientation: 0-Oriented Tacttile Disturbances: 1-Very Mild Itch/Numbness Auditory Disturbances: 0-None Visual Disturbances: 0-None Headache: 1-Very Mild CIWA-Ar Total Score: 6 BHS Progress Note (SOAP) Subjective: alert,irritable,anxious,interrupted sleep,pain in the body Objective: 06/01/19 10:55 Vital Signs Temperature 97.3 F L 06/01/19 09:43 Pulse Rate 64 06/01/19 09:43 Respiratory Rate 18 06/01/19 09:43 Blood Pressure 125/74 06/01/19 09:43 O2 Sat by Pulse Oximetry (%) Assessment: 06/01/19 10:55 withdrawal symptom Plan: continue detox librium regimen
[2019-06-01] MEDS: THIAMINE HCL 100 MG TABLET (FP) PO SCH (22:04)
[2019-06-01] MEDS: traZODone HCL 100 MG TABLET (FP) PO SCH (22:04)
[2019-06-02] MEDS: chlordiazePOXIDE HCL 10 MG CAPSULE PO SCH ×2 (05:22→17:55)
[2019-06-02] MEDS: IBUPROFEN 600 MG TABLET (FP) PO PRN (05:22)
[2019-06-02] MEDS: NICOTINE 21 MG/24 HOURS TOPICAL PATCH TD SCH (10:55)
[2019-06-02] MEDS: METHYL SALICYLATE/MENTHOL OINT 30 GM TUBE TP SCH (10:55)
[2019-06-02] MEDS: PRENATAL VITAMINS W/ FOLIC ACID TABLET (FP) PO SCH (10:55)
[2019-06-02] MEDS: busPIRone HCL 5 MG TABLET PO SCH ×2 (10:55→21:50)
--- NOTE | 2019-06-02 15:12 | PN ---
[facility] CIWA - CIWA Score Nausea/Vomitin-No Nausea/No Vomiting Muscle Tremors: None Anxiety: 3 Agitation: 0-Normal Activity Paroxysmal Sweats: 1-Minimal [place] Moist Orientation: 0-Oriented Tacttile Disturbances: 1-Very Mild Itch/Numbness Auditory Disturbances: 0-None Visual Disturbances: 0-None Headache: 0-None Present CIWA-Ar Total Score: 5 S Progress Note (SOAP) Subjective: c/o of improvement in withdrawal sx, anxious and interrupted sleep Objective: 06/02/19 15:09 Vital Signs Temperature 97.7 F 06/02/19 13:39 Pulse Rate 59 L 06/02/19 13:39 Respiratory Rate 18 06/02/19 13:39 Blood Pressure 126/72 06/02/19 13:39 O2 Sat by Pulse Oximetry (%) Laboratory Last Values WBC 3.7 K/mm3 (4.0-10.0) L 05/30/19 08:00 RBC 3.60 M/mm3 (4.00-5.60) L 05/30/19 08:00 Hgb 12.6 GM/dL (11.7-16.9) 05/30/19 08:00 Hct 36.9 % (35.4-49) 05/30/19 08:00 MCV 102.6 fl (80-96) H 05/30/19 08:00 MCH 34.9 pg (25.7-33.7) H 05/30/19 08:00 MCHC 34.0 g/dl (32.0-35.9) 05/30/19 08:00 RDW 13.2 % (11.9-15.9) 05/30/19 08:00 Plt Count 230 K/MM3 (134-434) 05/30/19 08:00 MPV 8.0 fl (7.5-11.1) 05/30/19 08:00 Sodium 140 mmol/L (136-145) 05/30/19 08:00 Potassium 4.2 mmol/L (3.5-5.1) 05/30/19 08:00 Chloride 102 mmol/L (98-107) 05/30/19 08:00 Carbon Dioxide 29 mmol/L (21-32) 05/30/19 08:00 Anion Gap 8 MMOL/L (8-16) 05/30/19 08:00 BUN 12.6 mg/dL (7-18) 05/30/19 08:00 Creatinine 0.8 mg/dL (0.55-1.3) 05/30/19 08:00 Est GFR (CKD-EPI)AfAm 122.43 05/30/19 08:00 Est GFR (CKD-EPI)NonAf 105.63 05/30/19 08:00 Random Glucose 89 mg/dL (74-106) 05/30/19 08:00 Calcium 9.0 mg/dL (8.5-10.1) 05/30/19 08:00 Total Bilirubin 0.6 mg/dL (0.2-1) 05/30/19 08:00 AST 31 U/L (15-37) 05/30/19 08:00 ALT 27 U/L (13-61) 05/30/19 08:00 Alkaline Phosphatase 67 U/L (45-117) 05/30/19 08:00 Total Protein 6.0 g/dl (6.4-8.2) L 05/30/19 08:00 Albumin 3.4 g/dl (3.4-5.0) 05/30/19 08:00 RPR Titer Nonreactive (NONREACTIVE) 05/30/19 08:00 Assessment: 06/02/19 15:09 AOx3 no acute distress full ROM ambulating in the unit withdrawal sx Plan: increase PO fluids d/c in the AM Patient will follow at [facility] out patient program, reorts his PCP from [facility] will continue Antabuse for alcohol dependence and rx was sent to local [facility] by his PCP Dr. Argelia Rose @ [facility] continue to monitor
[2019-06-02] MEDS: traZODone HCL 100 MG TABLET (FP) PO SCH (21:50)
[2019-06-02] MEDS: THIAMINE HCL 100 MG TABLET (FP) PO SCH (21:50)
[2019-06-02] MEDS: MELATONIN 5 MG TABLETS PO PRN (21:51)
[2019-06-03] MEDS ORDERED: chlordiazePOXIDE HCL 10 MG CAPSULE PO ONE (05:00)
[2019-06-03] MEDS: IBUPROFEN 600 MG TABLET (FP) PO PRN (05:59)
[2019-06-03 09:43] VITALS: BP 127/82; PULSE 76; TEMP 97
--- NOTE | 2019-06-03 09:44 | DS ---
[facility] Detox Discharge Summary Admission Date: 05/29/19 Discharge Date: 06/03/19 - History Present History: Alcohol Dependence Pertinent Past History: Pt completed alcohol detox and will be following up with outpt detox in [place] and is on naltrexone and antabuse. Pt does not need meds PCP- Dr. Tijerina. - Physical Exam Results Vital Signs: Vital Signs Temperature 96.6 F L 06/03/19 07:02 Pulse Rate 57 L 06/03/19 07:02 Respiratory Rate 16 06/03/19 07:02 Blood Pressure 110/69 06/02/19 20:51 O2 Sat by Pulse Oximetry (%) - Treatment Hospital Course: Detox Protocol Followed, Detoxed Safely, Responded well, Discharged Condition Good, Rehab Referral Accepted - Medication Discharge Medications: Ambulatory Orders Buspirone HCl [Buspar -] 5 mg PO BID #30 tablet 05/06/19 traZODone HCL [Trazodone HCl] 100 mg PO HS #30 tablet 05/06/19 - AMA Did Patient Leave Against Medical Advice: No
[2019-06-03] MEDS: busPIRone HCL 5 MG TABLET PO SCH (10:28)
[2019-06-03] MEDS: METHYL SALICYLATE/MENTHOL OINT 30 GM TUBE TP SCH (10:28)
[2019-06-03] MEDS: PRENATAL VITAMINS W/ FOLIC ACID TABLET (FP) PO SCH (10:28)
[2019-06-03] MEDS: NICOTINE 21 MG/24 HOURS TOPICAL PATCH TD SCH (10:29)
== END 2019-06-03 11:52 | disposition home or self-care (01) | DRG 775 ==
LOC: YASAS 13:32 → Y6N 15:48
PROVIDERS: ADMIT Allergy & Immunology; ATTEND Allergy & Immunology
PROC: HZ2ZZZZ Detoxification Services for Substance Abuse Treatment (ICD-10-PCS; principal; 2019-05-29)
DX: F10.230 Alcohol dependence with withdrawal, uncomplicated (principal); F10.220 Alcohol dependence with intoxication, uncomplicated; F43.10 Post-traumatic stress disorder, unspecified; F19.24 Other psychoactive substance dependence with psychoactive substance-induced mood disorder; F41.0 Panic disorder [episodic paroxysmal anxiety]; G47.00 Insomnia, unspecified; E78.5 Hyperlipidemia, unspecified; E73.9 Lactose intolerance, unspecified; Z91.011 Allergy to milk products; Z91.19 Patient's noncompliance with other medical treatment and regimen
CPT/HCPCS: 36415; 80053; 85027; 86593; 93005; 93010

== ENCOUNTER 2020-06-30 21:15 | Emergency (ER) | payer OTHER ==
[2020-06-30 21:33] VITALS: TEMP 98.1; BMI 18.6
[2020-06-30] MEDS ORDERED: LORazepam 1 MG TABLET PO ONE (23:16)
[2020-06-30] MEDS ORDERED: LORazepam 1 MG TABLET ONE (23:18)
[2020-07-01 06:15] VITALS: BP 123/80; PULSE 94
== END 2020-07-01 06:15 | disposition home or self-care (01) ==
LOC: JER 21:15
DX: F10.221 Alcohol dependence with intoxication delirium (principal)
CPT/HCPCS: 99283-25

== ENCOUNTER 2020-08-12 16:12 | Inpatient (IN) | payer OTHER ==
[2020-08-12 19:09] VITALS: BMI 22.4
[2020-08-12] MEDS ORDERED: MAGNESIUM HYDROX 2400MG/30ML ORAL SUSPENSION 30 ML CUP PO PRN (21:05)
[2020-08-12] MEDS ORDERED: MAGNESIUM CITRATE 300 ML BOTTLE PO PRN (21:05)
[2020-08-12] MEDS ORDERED: METHOCARBAMOL 500 MG TABLET PO PRN (21:05)
[2020-08-12] MEDS ORDERED: hydrOXYzine PAMOATE 25 MG CAPSULE (FP) PO PRN (21:05)
[2020-08-12] MEDS ORDERED: ONDANSETRON *ODT* 4 MG TABLET SL PRN (21:05)
[2020-08-12] MEDS ORDERED: IBUPROFEN 400 MG TABLET (FP) PO PRN (21:05)
[2020-08-12] MEDS ORDERED: NICOTINE POLACRILEX 2 MG GUM BUC PRN (21:05)
[2020-08-12] MEDS ORDERED: BISMUTH SUBSALICYLATE 524 MG/30 ML UD PO PRN (21:05)
[2020-08-12] MEDS ORDERED: MAG HYDROX/AL HYDROX/SIMETH 30 ML UNIT-DOSE CUP PO PRN (21:05)
[2020-08-12] MEDS ORDERED: MENTHOL/PHENOL 1 EACH UD MM PRN (21:05)
[2020-08-12] MEDS ORDERED: ACETAMINOPHEN 325 MG TABLET (FP) PO PRN ×2 (21:05)
[2020-08-12] MEDS ORDERED: diazePAM 5 MG TABLET PO PRN (21:06)
[2020-08-12] MEDS: diazePAM 5 MG TABLET PO SCH (22:44)
[2020-08-12] MEDS: MELATONIN 5 MG TABLETS PO SCH (22:44)
[2020-08-12] MEDS: THIAMINE HCL 100 MG TABLET (FP) PO SCH (22:44)
[2020-08-13] MEDS: diazePAM 5 MG TABLET PO SCH ×4 (06:24→22:07)
[2020-08-13] MEDS: PRENATAL VITAMINS W/ FOLIC ACID TABLET (FP) PO SCH (10:10)
[2020-08-13 10:36] LABS: HEMATOCRIT 37.3 % (35.4-49); HEMOGLOBIN 12.8 GM/dL (11.7-16.9); MCH 33.2 pg (25.7-33.7); MCHC 34.4 g/dl (32.0-35.9); MEAN CELL VOLUME 96.4 fl (80-96); MEAN PLT VOLUME 8.7 fl (7.5-11.1); PLATELET COUNT 238 K/MM3 (134-434); RBC 3.87 M/mm3 (4.00-5.60); RDW 13.3 % (11.9-15.9); WHITE BLOOD COUNT 4.3 K/mm3 (4.0-10.0)
[2020-08-13 10:43] LABS: ALBUMIN 3.4 g/dl (3.4-5.0); CALCIUM 8.7 mg/dL (8.5-10.1)
[2020-08-13 10:46] LABS: CREATININE 0.8 mg/dL (0.55-1.3)
[2020-08-13 10:48] LABS: BILIRUBIN,TOTAL 0.3 mg/dL (0.2-1)
[2020-08-13] MEDS ORDERED: QUEtiapine FUMARATE 100 MG TABLET (FP) PO SCH (22:00)
[2020-08-13] MEDS: MELATONIN 5 MG TABLETS PO SCH (22:06)
[2020-08-13] MEDS: THIAMINE HCL 100 MG TABLET (FP) PO SCH (22:07)
[2020-08-14] MEDS ORDERED: diazePAM 5 MG TABLET PO SCH (06:00)
[2020-08-14 09:58] VITALS: BP 132/87; PULSE 87; TEMP 98.3
[2020-08-14] MEDS ORDERED: ESCITALOPRAM OXALATE 10 MG TABLET PO SCH (10:00)
[2020-08-14] MEDS: PRENATAL VITAMINS W/ FOLIC ACID TABLET (FP) PO SCH (10:24)
[2020-08-15] MEDS ORDERED: diazePAM 5 MG TABLET PO ONE (06:00)
== END 2020-08-14 11:50 | disposition home or self-care (01) | DRG 775 ==
LOC: YASAS 16:12 → Y6N 21:20
PROVIDERS: ADMIT Allergy & Immunology; ATTEND Allergy & Immunology
PROC: HZ2ZZZZ Detoxification Services for Substance Abuse Treatment (ICD-10-PCS; principal; 2020-08-12)
DX: F10.230 Alcohol dependence with withdrawal, uncomplicated (principal); F17.210 Nicotine dependence, cigarettes, uncomplicated; F31.81 Bipolar II disorder; F10.282 Alcohol dependence with alcohol-induced sleep disorder; F10.24 Alcohol dependence with alcohol-induced mood disorder; F10.280 Alcohol dependence with alcohol-induced anxiety disorder; F43.10 Post-traumatic stress disorder, unspecified; U07.1 COVID-19; J45.909 Unspecified asthma, uncomplicated; L30.9 Dermatitis, unspecified; M41.9 Scoliosis, unspecified; M54.5 Low back pain; G89.29 Other chronic pain; Z87.19 Personal history of other diseases of the digestive system; Z91.011 Allergy to milk products; Z59.0 Homelessness
CPT/HCPCS: 36415; 80053; 85027; 86780; C9803; U0003

== ENCOUNTER 2020-08-28 14:02 | Inpatient (IN) | payer OTHER ==
[2020-08-28] MEDS ORDERED: IBUPROFEN 400 MG TABLET (FP) PO PRN (15:24)
[2020-08-28] MEDS ORDERED: MENTHOL/PHENOL 1 EACH UD MM PRN (15:24)
[2020-08-28] MEDS ORDERED: MAG HYDROX/AL HYDROX/SIMETH 30 ML UNIT-DOSE CUP PO PRN (15:24)
[2020-08-28] MEDS ORDERED: chlordiazePOXIDE HCL 25 MG CAPSULE PO PRN (15:24)
[2020-08-28] MEDS ORDERED: BISMUTH SUBSALICYLATE 524 MG/30 ML UD PO PRN (15:24)
[2020-08-28] MEDS ORDERED: ONDANSETRON *ODT* 4 MG TABLET SL PRN (15:24)
[2020-08-28] MEDS ORDERED: ACETAMINOPHEN 325 MG TABLET (FP) PO PRN ×2 (15:24)
[2020-08-28] MEDS ORDERED: NICOTINE POLACRILEX 2 MG GUM BUC PRN (15:24)
[2020-08-28] MEDS ORDERED: MAGNESIUM HYDROX 2400MG/30ML ORAL SUSPENSION 30 ML CUP PO PRN (15:24)
[2020-08-28] MEDS ORDERED: MAGNESIUM CITRATE 300 ML BOTTLE PO PRN (15:24)
[2020-08-28] MEDS ORDERED: METHOCARBAMOL 500 MG TABLET PO PRN (15:24)
[2020-08-28 15:36] VITALS: BMI 25.9
[2020-08-28 17:12] LABS: HEMATOCRIT 43.6 % (35.4-49); HEMOGLOBIN 14.8 GM/dL (11.7-16.9); MCH 33.3 pg (25.7-33.7); MEAN PLT VOLUME 8.3 fl (7.5-11.1); PLATELET COUNT 288 K/MM3 (134-434); RBC 4.45 M/mm3 (4.00-5.60); RDW 14.8 % (11.9-15.9); WHITE BLOOD COUNT 5.6 K/mm3 (4.0-10.0)
[2020-08-28 17:15] LABS: POTASSIUM 3.9 mmol/L (3.5-5.1)
[2020-08-28 17:17] LABS: CALCIUM 9.5 mg/dL (8.5-10.1)
[2020-08-28 17:18] LABS: ALBUMIN 4.3 g/dl (3.4-5.0); BLOOD UREA NITROGEN 13.2 mg/dL (7-18)
[2020-08-28 17:21] LABS: CREATININE 0.8 mg/dL (0.55-1.3)
[2020-08-28 17:23] LABS: BILIRUBIN,TOTAL 0.6 mg/dL (0.2-1); TOT PROT 7.4 g/dl (6.4-8.2)
[2020-08-28] MEDS: chlordiazePOXIDE HCL 25 MG CAPSULE PO SCH ×2 (17:43→22:10)
[2020-08-28] MEDS: NICOTINE 14 MG/24 HOURS TOPICAL PATCH TD SCH (17:44)
[2020-08-28] MEDS: hydrOXYzine PAMOATE 25 MG CAPSULE (FP) PO SCH ×2 (17:44→22:10)
[2020-08-28] MEDS: MELATONIN 5 MG TABLETS PO SCH (22:10)
[2020-08-28] MEDS: THIAMINE HCL 100 MG TABLET (FP) PO SCH (22:10)
[2020-08-28] MEDS: QUEtiapine FUMARATE 100 MG TABLET (FP) PO SCH (22:10)
[2020-08-29] MEDS: chlordiazePOXIDE HCL 25 MG CAPSULE PO SCH ×4 (05:49→22:29)
[2020-08-29] MEDS: hydrOXYzine PAMOATE 25 MG CAPSULE (FP) PO SCH ×2 (05:50→10:36)
[2020-08-29] MEDS ORDERED: hydrOXYzine PAMOATE 25 MG CAPSULE (FP) PO PRN (10:22)
[2020-08-29] MEDS: PRENATAL VITAMINS W/ FOLIC ACID TABLET (FP) PO SCH (10:28)
[2020-08-29] MEDS: NICOTINE 14 MG/24 HOURS TOPICAL PATCH TD SCH (10:30)
[2020-08-29] MEDS: QUEtiapine FUMARATE 100 MG TABLET (FP) PO SCH (22:29)
[2020-08-29] MEDS: THIAMINE HCL 100 MG TABLET (FP) PO SCH (22:29)
[2020-08-29] MEDS: MELATONIN 5 MG TABLETS PO SCH (22:29)
[2020-08-30] MEDS: chlordiazePOXIDE HCL 25 MG CAPSULE PO SCH ×4 (06:14→22:12)
[2020-08-30] MEDS: PRENATAL VITAMINS W/ FOLIC ACID TABLET (FP) PO SCH (10:13)
[2020-08-30] MEDS: NICOTINE 14 MG/24 HOURS TOPICAL PATCH TD SCH (10:13)
[2020-08-30] MEDS: QUEtiapine FUMARATE 100 MG TABLET (FP) PO SCH (22:11)
[2020-08-30] MEDS: THIAMINE HCL 100 MG TABLET (FP) PO SCH (22:11)
[2020-08-30] MEDS: MELATONIN 5 MG TABLETS PO SCH (22:12)
[2020-08-31] MEDS ORDERED: chlordiazePOXIDE HCL 10 MG CAPSULE PO PRN
[2020-08-31] MEDS ORDERED: chlordiazePOXIDE HCL 10 MG CAPSULE PO SCH (05:00)
[2020-08-31 11:02] VITALS: BP 116/80; PULSE 68; TEMP 98
[2020-09-01] MEDS ORDERED: chlordiazePOXIDE HCL 10 MG CAPSULE PO SCH (05:00)
[2020-09-02] MEDS ORDERED: chlordiazePOXIDE HCL 10 MG CAPSULE PO ONE (05:00)
== END 2020-08-31 10:05 | disposition home or self-care (01) | DRG 775 ==
LOC: YASAS 14:02 → Y3N 15:18
PROVIDERS: ADMIT Allergy & Immunology; ATTEND Allergy & Immunology
PROC: HZ2ZZZZ Detoxification Services for Substance Abuse Treatment (ICD-10-PCS; principal; 2020-08-28)
DX: F10.230 Alcohol dependence with withdrawal, uncomplicated (principal); F17.210 Nicotine dependence, cigarettes, uncomplicated; F10.282 Alcohol dependence with alcohol-induced sleep disorder; F10.24 Alcohol dependence with alcohol-induced mood disorder; F19.24 Other psychoactive substance dependence with psychoactive substance-induced mood disorder; F31.9 Bipolar disorder, unspecified; F43.10 Post-traumatic stress disorder, unspecified; E78.5 Hyperlipidemia, unspecified; M41.9 Scoliosis, unspecified; Z87.19 Personal history of other diseases of the digestive system; Z87.81 Personal history of (healed) traumatic fracture; Z98.890 Other specified postprocedural states; Z91.011 Allergy to milk products
CPT/HCPCS: 36415; 80053; 85027; 86780; C9803; U0003

== ENCOUNTER 2020-11-03 11:01 | Inpatient (IN) | payer OTHER ==
[2020-11-03 11:57] VITALS: BMI 22.1
[2020-11-03] MEDS ORDERED: BISMUTH SUBSALICYLATE 524 MG/30 ML PO PRN (13:18)
[2020-11-03] MEDS ORDERED: ACETAMINOPHEN 325 MG TABLET (FP) PO PRN ×2 (13:18)
[2020-11-03] MEDS ORDERED: METHOCARBAMOL 500 MG TABLET PO PRN (13:18)
[2020-11-03] MEDS ORDERED: IBUPROFEN 400 MG TABLET (FP) PO PRN (13:18)
[2020-11-03] MEDS ORDERED: MENTHOL/PHENOL 1 EACH UD MM PRN (13:18)
[2020-11-03] MEDS ORDERED: NICOTINE POLACRILEX 2 MG GUM BUC PRN (13:18)
[2020-11-03] MEDS ORDERED: MAG HYDROX/AL HYDROX/SIMETH 30 ML UNIT-DOSE CUP PO PRN (13:18)
[2020-11-03] MEDS ORDERED: ONDANSETRON *ODT* 4 MG TABLET SL PRN (13:18)
[2020-11-03] MEDS ORDERED: LORazepam 1 MG TABLET PO PRN (13:18)
[2020-11-03] MEDS ORDERED: MAGNESIUM HYDROX 2400MG/30ML ORAL SUSPENSION 30 ML CUP PO PRN (13:18)
[2020-11-03] MEDS ORDERED: MAGNESIUM CITRATE 300 ML BOTTLE PO PRN (13:18)
[2020-11-03] MEDS: NICOTINE 21 MG/24 HOURS TOPICAL PATCH TD SCH (15:15)
[2020-11-03] MEDS: hydrOXYzine PAMOATE 25 MG CAPSULE (FP) PO SCH ×3 (15:15→22:26)
[2020-11-03] MEDS: LORazepam 2 MG TABLET PO SCH ×2 (18:04→22:26)
[2020-11-03] MEDS ORDERED: MELATONIN 5 MG TABLETS PO SCH (22:00)
[2020-11-03] MEDS ORDERED: THIAMINE HCL 100 MG TABLET (FP) PO SCH (22:00)
[2020-11-04] MEDS: LORazepam 2 MG TABLET PO SCH ×2 (05:25→10:14)
[2020-11-04] MEDS: hydrOXYzine PAMOATE 25 MG CAPSULE (FP) PO SCH ×2 (05:25→10:15)
[2020-11-04 09:20] VITALS: BP 104/65; PULSE 58; TEMP 97.1
[2020-11-04] MEDS ORDERED: ESCITALOPRAM OXALATE 10 MG TABLET ONE (09:49)
[2020-11-04] MEDS ORDERED: PRENATAL VITAMINS W/ FOLIC ACID TABLET (FP) PO SCH (10:00)
[2020-11-04] MEDS ORDERED: ESCITALOPRAM OXALATE 20 MG TABLET PO SCH (10:00)
[2020-11-04] MEDS: NICOTINE 21 MG/24 HOURS TOPICAL PATCH TD SCH (10:14)
[2020-11-04 10:18] LABS: HEMATOCRIT 35.4 % (35.4-49); HEMOGLOBIN 12.2 GM/dL (11.7-16.9); MCH 33.2 pg (25.7-33.7); MCHC 34.5 g/dl (32.0-35.9); MEAN CELL VOLUME 96.3 fl (80-96); PLATELET COUNT 226 K/MM3 (134-434); RBC 3.68 M/mm3 (4.00-5.60); RDW 13.4 % (11.9-15.9); WHITE BLOOD COUNT 6.6 K/mm3 (4.0-10.0)
[2020-11-04 10:32] LABS: CALCIUM 8.4 mg/dL (8.5-10.1)
[2020-11-04 10:33] LABS: ALBUMIN 3.4 g/dl (3.4-5.0); BLOOD UREA NITROGEN 12.9 mg/dL (7-18)
[2020-11-04 10:35] LABS: BILIRUBIN,TOTAL 0.3 mg/dL (0.2-1)
[2020-11-04 10:36] LABS: CREATININE 0.7 mg/dL (0.55-1.3); TOT PROT 5.8 g/dl (6.4-8.2)
[2020-11-04] MEDS ORDERED: QUEtiapine FUMARATE 100 MG TABLET (FP) PO SCH (22:00)
[2020-11-05] MEDS ORDERED: LORazepam 1 MG TABLET PO SCH (05:00)
[2020-11-06] MEDS ORDERED: LORazepam 0.5 MG TABLET PO PRN
[2020-11-06] MEDS ORDERED: LORazepam 0.5 MG TABLET PO SCH (05:00)
[2020-11-07] MEDS ORDERED: LORazepam 0.5 MG TABLET PO ONE (05:00)
== END 2020-11-04 12:14 | disposition left against medical advice (07) | DRG 770 ==
LOC: YASAS 11:01 → Y3N 14:32
PROVIDERS: ADMIT Allergy & Immunology; ATTEND Allergy & Immunology
PROC: HZ2ZZZZ Detoxification Services for Substance Abuse Treatment (ICD-10-PCS; principal; 2020-11-03)
DX: F10.230 Alcohol dependence with withdrawal, uncomplicated (principal); F10.220 Alcohol dependence with intoxication, uncomplicated; F10.280 Alcohol dependence with alcohol-induced anxiety disorder; F10.282 Alcohol dependence with alcohol-induced sleep disorder; F17.210 Nicotine dependence, cigarettes, uncomplicated; F31.81 Bipolar II disorder; F43.10 Post-traumatic stress disorder, unspecified; F60.9 Personality disorder, unspecified; E78.5 Hyperlipidemia, unspecified; J45.909 Unspecified asthma, uncomplicated; K21.9 Gastro-esophageal reflux disease without esophagitis; L30.9 Dermatitis, unspecified; M54.5 Low back pain; Z87.19 Personal history of other diseases of the digestive system; Z91.011 Allergy to milk products
CPT/HCPCS: 36415; 80053; 85027; 86780; C9803; U0003; U0005

== ENCOUNTER 2020-12-11 12:13 | Inpatient (IN) | payer OTHER ==
[2020-12-11 13:06] VITALS: BMI 24.5
[2020-12-11] MEDS ORDERED: IBUPROFEN 400 MG TABLET (FP) PO PRN (13:23)
[2020-12-11] MEDS ORDERED: LORazepam 1 MG TABLET PO PRN (13:23)
[2020-12-11] MEDS ORDERED: MAGNESIUM CITRATE 300 ML BOTTLE PO PRN (13:23)
[2020-12-11] MEDS ORDERED: ACETAMINOPHEN 325 MG TABLET (FP) PO PRN ×2 (13:23)
[2020-12-11] MEDS ORDERED: MAG HYDROX/AL HYDROX/SIMETH 30 ML UNIT-DOSE CUP PO PRN (13:23)
[2020-12-11] MEDS ORDERED: METHOCARBAMOL 500 MG TABLET PO PRN (13:23)
[2020-12-11] MEDS ORDERED: MAGNESIUM HYDROX 2400MG/30ML ORAL SUSPENSION 30 ML CUP PO PRN (13:23)
[2020-12-11] MEDS ORDERED: ONDANSETRON *ODT* 4 MG TABLET SL PRN (13:23)
[2020-12-11] MEDS ORDERED: BISMUTH SUBSALICYLATE 524 MG/30 ML PO PRN (13:23)
[2020-12-11] MEDS ORDERED: MENTHOL/PHENOL 1 EACH UD MM PRN (13:23)
[2020-12-11] MEDS ORDERED: NICOTINE POLACRILEX 2 MG GUM BUC PRN (13:23)
[2020-12-11] MEDS: hydrOXYzine PAMOATE 25 MG CAPSULE (FP) PO SCH ×3 (14:49→22:37)
[2020-12-11] MEDS: PRENATAL VITAMINS W/ FOLIC ACID TABLET (FP) PO SCH (14:51)
[2020-12-11] MEDS: NICOTINE 14 MG/24 HOURS TOPICAL PATCH TD SCH (14:54)
[2020-12-11 16:14] LABS: HEMATOCRIT 34.8 % (35.4-49); HEMOGLOBIN 11.4 GM/dL (11.7-16.9); MCH 31.6 pg (25.7-33.7); MCHC 32.8 g/dl (32.0-35.9); MEAN CELL VOLUME 96.2 fl (80-96); MEAN PLT VOLUME 8.7 fl (7.5-11.1); PLATELET COUNT 248 10^3/uL (134-434); RBC 3.61 M/mm3 (4.00-5.60); RDW 13.7 % (11.9-15.9); WHITE BLOOD COUNT 6.5 K/mm3 (4.0-10.0)
[2020-12-11 16:18] LABS: CALCIUM 8.5 mg/dL (8.5-10.1)
[2020-12-11 16:19] LABS: ALBUMIN 3.7 g/dl (3.4-5.0); BLOOD UREA NITROGEN 17.2 mg/dL (7-18)
[2020-12-11 16:22] LABS: CREATININE 0.7 mg/dL (0.55-1.3)
[2020-12-11 16:24] LABS: BILIRUBIN,TOTAL 0.8 mg/dL (0.2-1); TOT PROT 6.3 g/dl (6.4-8.2)
[2020-12-11 17:26] LABS: HIV INTERPRETATION NEGATIVE (NEGATIVE)
[2020-12-11] MEDS: LORazepam 2 MG TABLET PO SCH ×2 (18:33→22:37)
[2020-12-11] MEDS: MELATONIN 5 MG TABLETS PO SCH (22:37)
[2020-12-11] MEDS: THIAMINE HCL 100 MG TABLET (FP) PO SCH (22:37)
[2020-12-11] MEDS: QUEtiapine FUMARATE 100 MG TABLET (FP) PO SCH (22:37)
[2020-12-12] MEDS: LORazepam 2 MG TABLET PO SCH ×4 (06:16→22:10)
[2020-12-12] MEDS: hydrOXYzine PAMOATE 25 MG CAPSULE (FP) PO SCH ×5 (06:16→22:10)
[2020-12-12] MEDS: FLUoxetine HCL 20 MG CAPSULE PO SCH (11:06)
[2020-12-12] MEDS: PRENATAL VITAMINS W/ FOLIC ACID TABLET (FP) PO SCH (11:06)
[2020-12-12] MEDS: NICOTINE 14 MG/24 HOURS TOPICAL PATCH TD SCH (11:09)
[2020-12-12] MEDS: MELATONIN 5 MG TABLETS PO SCH (22:09)
[2020-12-12] MEDS: QUEtiapine FUMARATE 100 MG TABLET (FP) PO SCH (22:09)
[2020-12-12] MEDS: THIAMINE HCL 100 MG TABLET (FP) PO SCH (22:10)
[2020-12-13] MEDS: hydrOXYzine PAMOATE 25 MG CAPSULE (FP) PO SCH ×2 (05:57→10:19)
[2020-12-13] MEDS: LORazepam 1 MG TABLET PO SCH ×2 (05:58→10:19)
[2020-12-13 09:02] VITALS: BP 130/85; PULSE 85; TEMP 97.4
[2020-12-13] MEDS: PRENATAL VITAMINS W/ FOLIC ACID TABLET (FP) PO SCH (10:19)
[2020-12-13] MEDS: NICOTINE 14 MG/24 HOURS TOPICAL PATCH TD SCH (10:19)
[2020-12-13] MEDS: FLUoxetine HCL 20 MG CAPSULE PO SCH (10:20)
[2020-12-14] MEDS ORDERED: LORazepam 0.5 MG TABLET PO PRN
[2020-12-14] MEDS ORDERED: LORazepam 0.5 MG TABLET PO SCH (05:00)
[2020-12-15] MEDS ORDERED: LORazepam 0.5 MG TABLET PO ONE (05:00)
== END 2020-12-13 10:52 | disposition left against medical advice (07) | DRG 770 ==
LOC: YASAS 12:13 → Y3N 13:52
PROVIDERS: ADMIT Allergy & Immunology; ATTEND Allergy & Immunology
PROC: HZ2ZZZZ Detoxification Services for Substance Abuse Treatment (ICD-10-PCS; principal; 2020-12-11)
DX: F10.230 Alcohol dependence with withdrawal, uncomplicated (principal); F17.210 Nicotine dependence, cigarettes, uncomplicated; F43.10 Post-traumatic stress disorder, unspecified; F19.24 Other psychoactive substance dependence with psychoactive substance-induced mood disorder; G47.00 Insomnia, unspecified; E73.9 Lactose intolerance, unspecified; K21.9 Gastro-esophageal reflux disease without esophagitis; Z87.19 Personal history of other diseases of the digestive system; Z56.0 Unemployment, unspecified
CPT/HCPCS: 36415; 80053; 85027; 86780; 87389; C9803; U0003; U0005

== ENCOUNTER 2022-03-05 17:19 | Inpatient (IN) | payer OTHER ==
[2022-03-05] MEDS ORDERED: guaiFENesin 200 MG/10 ML 10 ML UNIT-DOSE CUPS PO PRN (18:33)
[2022-03-05] MEDS ORDERED: ACETAMINOPHEN 325 MG TABLET (FP) PO PRN ×2 (18:33)
[2022-03-05] MEDS ORDERED: MAG HYDROX/AL HYDROX/SIMETH 30 ML UNIT-DOSE CUP PO PRN (18:33)
[2022-03-05] MEDS ORDERED: IBUPROFEN 400 MG TABLET (FP) PO PRN (18:33)
[2022-03-05] MEDS ORDERED: MAGNESIUM HYDROX 2400MG/30ML ORAL SUSPENSION 30 ML CUP PO PRN (18:33)
[2022-03-05] MEDS ORDERED: hydrOXYzine PAMOATE 25 MG CAPSULE (FP) PO PRN (18:33)
[2022-03-05] MEDS ORDERED: ONDANSETRON *ODT* 4 MG TABLET SL PRN (18:33)
[2022-03-05] MEDS ORDERED: DICYCLOMINE HCL 10 MG CAPSULE PO PRN (18:33)
[2022-03-05] MEDS ORDERED: IBUPROFEN 600 MG TABLET (FP) PO PRN (18:33)
[2022-03-05] MEDS ORDERED: MELATONIN 5 MG TABLETS PO PRN (18:33)
[2022-03-05] MEDS ORDERED: LOPERAMIDE HCL 2 MG CAPSULE PO PRN (18:33)
[2022-03-05] MEDS ORDERED: NICOTINE POLACRILEX 2 MG GUM BUC PRN (18:33)
[2022-03-05] MEDS ORDERED: BENZOCAINE/MENTHOL (CHLORASEPTIC ) LOZENGE MM PRN (18:33)
[2022-03-05] MEDS ORDERED: MAGNESIUM CITRATE 300 ML BOTTLE PO PRN (18:33)
[2022-03-05] MEDS ORDERED: P-EPHED 60MG/TRIPROLIDI 2.5MG TABLET PO PRN (18:33)
[2022-03-05] MEDS ORDERED: BISMUTH SUBSALICYLATE 524 MG/30 ML PO PRN (18:33)
[2022-03-05 18:35] VITALS: BMI 20.3
[2022-03-05] MEDS ORDERED: chlordiazePOXIDE HCL 25 MG CAPSULE PO PRN (18:35)
[2022-03-05] MEDS ORDERED: chlordiazePOXIDE HCL 25 MG CAPSULE PO ONE (18:35)
[2022-03-05] MEDS ORDERED: ACETAMINOPHEN 325 MG TABLET (FP) ONE (18:44)
[2022-03-05] MEDS ORDERED: chlordiazePOXIDE HCL 25 MG CAPSULE ONE (18:44)
[2022-03-05] MEDS: chlordiazePOXIDE HCL 25 MG CAPSULE PO SCH (22:34)
[2022-03-05] MEDS: METHOCARBAMOL 500 MG TABLET PO PRN (22:34)
[2022-03-05] MEDS: THIAMINE HCL 100 MG TABLET (FP) PO SCH (22:34)
[2022-03-06] MEDS: chlordiazePOXIDE HCL 25 MG CAPSULE PO SCH ×4 (05:15→22:38)
[2022-03-06] MEDS: PRENATAL VITAMINS W/ FOLIC ACID TABLET (FP) PO SCH (10:06)
[2022-03-06] MEDS: METHOCARBAMOL 500 MG TABLET PO PRN (10:06)
[2022-03-06 10:40] LABS: HEMATOCRIT 35.6 % (35.4-49); HEMOGLOBIN 12.8 GM/dL (11.7-16.9); MCH 34.3 pg (25.7-33.7); MCHC 35.9 g/dl (32.0-35.9); MEAN CELL VOLUME 95.6 fl (80-96); MEAN PLT VOLUME 8.3 fl (7.5-11.1); PLATELET COUNT 201 10^3/uL (134-434); RBC 3.72 M/mm3 (4.00-5.60); RDW 12.8 % (11.9-15.9); WHITE BLOOD COUNT 4.5 K/mm3 (4.0-10.0)
[2022-03-06 10:48] LABS: CALCIUM 8.5 mg/dL (8.5-10.1)
[2022-03-06 10:49] LABS: ALBUMIN 3.2 g/dl (3.4-5.0); BLOOD UREA NITROGEN 16.5 mg/dL (7-18)
[2022-03-06 10:52] LABS: CREATININE 0.7 mg/dL (0.55-1.3)
[2022-03-06 10:53] LABS: BILIRUBIN,TOTAL 0.8 mg/dL (0.2-1); TOT PROT 5.6 g/dl (6.4-8.2)
[2022-03-06] MEDS ORDERED: SUVOREXANT 10 MG TABLET PO PRN (22:00)
[2022-03-06] MEDS: THIAMINE HCL 100 MG TABLET (FP) PO SCH (22:38)
[2022-03-07] MEDS: chlordiazePOXIDE HCL 25 MG CAPSULE PO SCH ×2 (05:18→11:08)
[2022-03-07 10:00] VITALS: RESP 18
[2022-03-07] MEDS: PRENATAL VITAMINS W/ FOLIC ACID TABLET (FP) PO SCH (11:08)
[2022-03-07 13:16] VITALS: BP 124/88; PULSE 72; TEMP 97.2
[2022-03-08] MEDS ORDERED: chlordiazePOXIDE HCL 10 MG CAPSULE PO PRN
[2022-03-08] MEDS ORDERED: chlordiazePOXIDE HCL 10 MG CAPSULE PO SCH (05:00)
[2022-03-09] MEDS ORDERED: chlordiazePOXIDE HCL 10 MG CAPSULE PO SCH (05:00)
[2022-03-10] MEDS ORDERED: chlordiazePOXIDE HCL 10 MG CAPSULE PO ONE (05:00)
== END 2022-03-07 14:40 | disposition home or self-care (01) | DRG 775 ==
LOC: YASAS 17:19 → Y6N 19:23
PROVIDERS: ADMIT Allergy & Immunology; ATTEND Surgery
PROC: HZ2ZZZZ Detoxification Services for Substance Abuse Treatment (ICD-10-PCS; principal; 2022-03-05)
DX: F10.230 Alcohol dependence with withdrawal, uncomplicated (principal); F17.210 Nicotine dependence, cigarettes, uncomplicated; F10.282 Alcohol dependence with alcohol-induced sleep disorder; F10.24 Alcohol dependence with alcohol-induced mood disorder; F31.9 Bipolar disorder, unspecified; F41.9 Anxiety disorder, unspecified; F43.10 Post-traumatic stress disorder, unspecified; E78.5 Hyperlipidemia, unspecified; J45.20 Mild intermittent asthma, uncomplicated; K21.9 Gastro-esophageal reflux disease without esophagitis; L30.9 Dermatitis, unspecified; Z87.19 Personal history of other diseases of the digestive system; Z28.311 Partially vaccinated for COVID-19; Z91.011 Allergy to milk products
CPT/HCPCS: 36415; 80053; 85027; 86780; C9803-CS; Q0162; U0003; U0005

== ENCOUNTER 2022-10-06 12:20 | Inpatient (IN) | payer OTHER ==
[2022-10-06 13:06] VITALS: BMI 17.9
[2022-10-06] MEDS ORDERED: ACETAMINOPHEN 325 MG TABLET (FP) PO PRN (16:56)
[2022-10-06] MEDS ORDERED: MAG HYDROX/AL HYDROX/SIMETH 30 ML UNIT-DOSE CUP PO PRN (16:56)
[2022-10-06] MEDS ORDERED: BENZOCAINE/MENTHOL (CHLORASEPTIC ) LOZENGE MM PRN (16:56)
[2022-10-06] MEDS ORDERED: NALOXONE HCL (KLOXXADO) 8 MG SPRAY NS PRN (16:56)
[2022-10-06] MEDS ORDERED: IBUPROFEN 400 MG TABLET (FP) PO PRN (16:56)
[2022-10-06] MEDS ORDERED: BENZONATATE 200 MG CAPSULE PO PRN (16:56)
[2022-10-06] MEDS ORDERED: POLYETHYLENE GLYCOL (HEALTHYLAX) 3350 17 GM PACKET PO PRN (16:56)
[2022-10-06] MEDS ORDERED: guaiFENesin 600 MG TABLET.ER (FP) PO PRN (16:56)
[2022-10-06] MEDS ORDERED: MAGNESIUM HYDROX 2400MG/30ML ORAL SUSPENSION 30 ML CUP PO PRN (16:56)
[2022-10-06] MEDS ORDERED: hydrOXYzine PAMOATE 25 MG CAPSULE (FP) PO PRN (16:56)
[2022-10-06] MEDS ORDERED: NICOTINE 10 MG CARTRIDGE (INHALER) IH PRN (16:56)
[2022-10-06] MEDS ORDERED: DICYCLOMINE HCL 10 MG CAPSULE PO PRN (16:56)
[2022-10-06] MEDS ORDERED: IBUPROFEN 600 MG TABLET (FP) PO PRN (16:56)
[2022-10-06] MEDS ORDERED: LOPERAMIDE HCL 2 MG CAPSULE PO PRN (16:56)
[2022-10-06] MEDS ORDERED: METHOCARBAMOL 500 MG TABLET PO PRN (16:56)
[2022-10-06] MEDS ORDERED: NALOXONE HCL 0.4 MG/ML VIAL IM PRN (16:56)
[2022-10-06] MEDS ORDERED: BISMUTH SUBSALICYLATE 524 MG/30 ML PO PRN (16:56)
[2022-10-06] MEDS ORDERED: ONDANSETRON *ODT* 4 MG TABLET SL PRN (16:56)
[2022-10-06] MEDS: MELATONIN 5 MG TABLETS PO SCH (22:22)
[2022-10-06] MEDS: THIAMINE HCL 100 MG TABLET (FP) PO SCH (22:22)
[2022-10-07] MEDS ORDERED: chlordiazePOXIDE HCL 25 MG CAPSULE PO PRN (08:55)
[2022-10-07] MEDS: PRENATAL VITAMINS W/ FOLIC ACID TABLET (FP) PO SCH (10:07)
[2022-10-07] MEDS: chlordiazePOXIDE HCL 25 MG CAPSULE PO SCH ×3 (10:07→22:28)
[2022-10-07 10:57] LABS: HEMATOCRIT 37.5 % (35.4-49); HEMOGLOBIN 13.3 GM/dL (11.7-16.9); MCH 33.6 pg (25.7-33.7); MCHC 35.5 g/dl (32.0-35.9); MEAN CELL VOLUME 94.7 fl (80-96); MEAN PLT VOLUME 8.7 fl (7.5-11.1); PLATELET COUNT 234 10^3/uL (134-434); RBC 3.96 M/mm3 (4.00-5.60); RDW 12.8 % (11.9-15.9); WHITE BLOOD COUNT 5.5 K/mm3 (4.0-10.0)
[2022-10-07 11:36] LABS: ALBUMIN 3.7 g/dl (3.4-5.0); BLOOD UREA NITROGEN 20.7 mg/dL (7-18); CALCIUM 9.1 mg/dL (8.5-10.1)
[2022-10-07 11:37] LABS: CREATININE 0.8 mg/dL (0.55-1.3)
[2022-10-07 11:38] LABS: BILIRUBIN,TOTAL 0.5 mg/dL (0.2-1)
[2022-10-07 11:39] LABS: TOT PROT 6.4 g/dl (6.4-8.2)
[2022-10-07] MEDS: MELATONIN 5 MG TABLETS PO SCH (22:28)
[2022-10-07] MEDS: risperiDONE 1 MG TABLET PO SCH (22:28)
[2022-10-07] MEDS: THIAMINE HCL 100 MG TABLET (FP) PO SCH (22:28)
[2022-10-08] MEDS: chlordiazePOXIDE HCL 25 MG CAPSULE PO SCH ×4 (05:42→22:27)
[2022-10-08] MEDS: FLUoxetine HCL 20 MG CAPSULE PO SCH (10:49)
[2022-10-08] MEDS: risperiDONE 1 MG TABLET PO SCH ×2 (10:49→22:27)
[2022-10-08] MEDS: PRENATAL VITAMINS W/ FOLIC ACID TABLET (FP) PO SCH (10:49)
[2022-10-08] MEDS: MELATONIN 5 MG TABLETS PO SCH (22:27)
[2022-10-08] MEDS: THIAMINE HCL 100 MG TABLET (FP) PO SCH (22:27)
[2022-10-09] MEDS: chlordiazePOXIDE HCL 25 MG CAPSULE PO SCH ×2 (05:45→11:17)
[2022-10-09 06:57] VITALS: RESP 16
[2022-10-09 09:39] VITALS: BP 107/74; PULSE 80; TEMP 96.6
[2022-10-09] MEDS: FLUoxetine HCL 20 MG CAPSULE PO SCH (11:16)
[2022-10-09] MEDS: PRENATAL VITAMINS W/ FOLIC ACID TABLET (FP) PO SCH (11:16)
[2022-10-09] MEDS: risperiDONE 1 MG TABLET PO SCH (11:17)
[2022-10-10] MEDS ORDERED: chlordiazePOXIDE HCL 10 MG CAPSULE PO PRN
[2022-10-10] MEDS ORDERED: chlordiazePOXIDE HCL 10 MG CAPSULE PO SCH (05:00)
[2022-10-11] MEDS ORDERED: chlordiazePOXIDE HCL 10 MG CAPSULE PO SCH (05:00)
[2022-10-12] MEDS ORDERED: chlordiazePOXIDE HCL 10 MG CAPSULE PO ONE (05:00)
== END 2022-10-09 10:28 | disposition home or self-care (01) | DRG 775 ==
LOC: YASAS 12:20 → Y3N 17:05 → UNDOADMIN 17:05
PROVIDERS: ADMIT Allergy & Immunology; ATTEND Surgery
PROC: HZ2ZZZZ Detoxification Services for Substance Abuse Treatment (ICD-10-PCS; principal; 2022-10-06)
DX: F10.230 Alcohol dependence with withdrawal, uncomplicated (principal); F17.210 Nicotine dependence, cigarettes, uncomplicated; F31.81 Bipolar II disorder; F43.10 Post-traumatic stress disorder, unspecified; F41.9 Anxiety disorder, unspecified; E78.2 Mixed hyperlipidemia; G47.00 Insomnia, unspecified; J45.20 Mild intermittent asthma, uncomplicated; K21.9 Gastro-esophageal reflux disease without esophagitis; L30.9 Dermatitis, unspecified; Z86.19 Personal history of other infectious and parasitic diseases; Z88.8 Allergy status to other drugs, medicaments and biological substances; Z91.011 Allergy to milk products
CPT/HCPCS: 36415; 80053; 85027; 86780; C9803-CS; U0003; U0005

== ENCOUNTER 2023-08-30 10:32 | Inpatient (IN) | payer OTHER ==
[2023-08-30 11:07] VITALS: BMI 22.1
[2023-08-30] MEDS ORDERED: BISMUTH SUBSALICYLATE 262 MG/15 ML BTL PO PRN (12:37)
[2023-08-30] MEDS ORDERED: ONDANSETRON *ODT* 4 MG TABLET SL PRN (12:37)
[2023-08-30] MEDS ORDERED: MAGNESIUM HYDROX 2400MG/30ML ORAL SUSPENSION 30 ML CUP PO PRN (12:37)
[2023-08-30] MEDS ORDERED: MAG HYDROX/AL HYDROX/SIMETH 30 ML UNIT-DOSE CUP PO PRN (12:37)
[2023-08-30] MEDS ORDERED: LOPERAMIDE HCL 2 MG CAPSULE PO PRN (12:37)
[2023-08-30] MEDS ORDERED: BENZOCAINE/MENTHOL (CHLORASEPTIC ) LOZENGE MM PRN (12:37)
[2023-08-30] MEDS ORDERED: NALOXONE HCL (KLOXXADO) 8 MG SPRAY NS PRN (12:37)
[2023-08-30] MEDS ORDERED: DICYCLOMINE HCL 10 MG CAPSULE PO PRN (12:37)
[2023-08-30] MEDS ORDERED: NALOXONE HCL 0.4 MG/ML VIAL IM PRN (12:37)
[2023-08-30] MEDS ORDERED: IBUPROFEN 400 MG TABLET (FP) PO PRN (12:37)
[2023-08-30] MEDS ORDERED: NICOTINE POLACRILEX 2 MG GUM BUC PRN (12:37)
[2023-08-30] MEDS ORDERED: ACETAMINOPHEN 325 MG TABLET (FP) PO PRN (12:37)
[2023-08-30] MEDS ORDERED: METHOCARBAMOL 500 MG TABLET PO PRN (12:37)
[2023-08-30] MEDS ORDERED: BENZONATATE 200 MG CAPSULE PO PRN (12:37)
[2023-08-30] MEDS ORDERED: POLYETHYLENE GLYCOL (HEALTHYLAX) 3350 17 GM PACKET PO PRN (12:37)
[2023-08-30] MEDS ORDERED: guaiFENesin 600 MG TABLET.ER (FP) PO PRN (12:37)
[2023-08-30] MEDS: hydrOXYzine PAMOATE 25 MG CAPSULE (FP) PO PRN (14:56)
[2023-08-30] MEDS: chlordiazePOXIDE HCL 25 MG CAPSULE PO PRN (14:56)
[2023-08-30] MEDS: IBUPROFEN 600 MG TABLET (FP) PO PRN (16:50)
[2023-08-30] MEDS: chlordiazePOXIDE HCL 25 MG CAPSULE PO SCH (17:46)
[2023-08-30] MEDS: THIAMINE HCL 100 MG TABLET (FP) PO SCH (22:48)
[2023-08-30] MEDS: MELATONIN 5 MG TABLETS PO SCH (22:49)
[2023-08-31] MEDS: NICOTINE 14 MG/24 HOURS TOPICAL PATCH TD SCH (09:50)
[2023-08-31] MEDS: PRENATAL VITAMINS W/ FOLIC ACID TABLET (FP) PO SCH (09:50)
[2023-08-31] MEDS: ESCITALOPRAM OXALATE 10 MG TABLET PO SCH (11:13)
[2023-08-31] MEDS: PNEUMOC 20-VAL CONJ-DIP CRM/PF 0.5 ML SYRINGE IM ONE (11:15)
[2023-08-31 13:02] LABS: HEMATOCRIT 42.5 % (35.4-49); HEMOGLOBIN 14.8 GM/dL (11.7-16.9); MCH 33.8 pg (25.7-33.7); MCHC 34.7 g/dl (32.0-35.9); MEAN CELL VOLUME 97.2 fl (80-96); MEAN PLT VOLUME 9.4 fl (7.5-11.1); PLATELET COUNT 239 10^3/uL (134-434); RBC 4.38 M/mm3 (4.00-5.60); RDW 13.5 % (11.9-15.9); WHITE BLOOD COUNT 6.1 K/mm3 (4.0-10.0)
[2023-08-31 14:27] LABS: ALBUMIN 3.8 g/dl (3.4-5.0); BLOOD UREA NITROGEN 6.3 mg/dL (7-18)
[2023-08-31 14:30] LABS: CREATININE 0.8 mg/dL (0.55-1.3)
[2023-08-31 14:31] LABS: BILIRUBIN,TOTAL 0.3 mg/dL (0.2-1); TOT PROT 6.7 g/dl (6.4-8.2)
[2023-08-31 17:28] VITALS: RESP 16
[2023-08-31] MEDS: risperiDONE 2 MG TABLET PO SCH (22:36)
[2023-09-01] MEDS: chlordiazePOXIDE HCL 25 MG CAPSULE PO SCH (05:35)
[2023-09-01 09:12] VITALS: BP 131/76; PULSE 87; TEMP 97.1
[2023-09-02] MEDS ORDERED: chlordiazePOXIDE HCL 10 MG CAPSULE PO PRN
[2023-09-02] MEDS ORDERED: chlordiazePOXIDE HCL 10 MG CAPSULE PO SCH (05:00)
[2023-09-03] MEDS ORDERED: chlordiazePOXIDE HCL 10 MG CAPSULE PO SCH (05:00)
[2023-09-04] MEDS ORDERED: chlordiazePOXIDE HCL 10 MG CAPSULE PO ONE (05:00)
== END 2023-09-01 10:20 | disposition left against medical advice (07) | DRG 770 ==
LOC: YASAS 10:32 → Y6N 13:10
PROVIDERS: ADMIT Allergy & Immunology; ATTEND Surgery
PROC: HZ2ZZZZ Detoxification Services for Substance Abuse Treatment (ICD-10-PCS; principal; 2023-08-30)
DX: F10.230 Alcohol dependence with withdrawal, uncomplicated (principal); F17.210 Nicotine dependence, cigarettes, uncomplicated; F31.81 Bipolar II disorder; F43.10 Post-traumatic stress disorder, unspecified; E78.2 Mixed hyperlipidemia; G47.00 Insomnia, unspecified; J45.20 Mild intermittent asthma, uncomplicated; K21.9 Gastro-esophageal reflux disease without esophagitis; L30.9 Dermatitis, unspecified; M54.50 Low back pain, unspecified; G89.29 Other chronic pain; Z87.19 Personal history of other diseases of the digestive system; Z88.8 Allergy status to other drugs, medicaments and biological substances
CPT/HCPCS: 36415; 80053; 80305; 80307; 85027; 86780; 87811; 93005; 93010

== ENCOUNTER 2024-02-22 11:48 | Inpatient (IN) | payer OTHER ==
[2024-02-22 13:23] VITALS: BMI 22.1
[2024-02-22] MEDS ORDERED: guaiFENesin 600 MG TABLET.ER (FP) PO PRN (13:39)
[2024-02-22] MEDS ORDERED: METHOCARBAMOL 500 MG TABLET PO PRN (13:39)
[2024-02-22] MEDS ORDERED: BENZONATATE 200 MG CAPSULE PO PRN (13:39)
[2024-02-22] MEDS ORDERED: MAGNESIUM HYDROX 2400MG/30ML ORAL SUSPENSION 30 ML CUP PO PRN (13:39)
[2024-02-22] MEDS ORDERED: POLYETHYLENE GLYCOL (HEALTHYLAX) 3350 17 GM PACKET PO PRN (13:39)
[2024-02-22] MEDS ORDERED: BISMUTH SUBSALICYLATE 524 MG/30 ML PO PRN (13:39)
[2024-02-22] MEDS ORDERED: IBUPROFEN 400 MG TABLET (FP) PO PRN (13:39)
[2024-02-22] MEDS ORDERED: NALOXONE (NARCAN) HCL 4 MG/0.1 ML SPRAY NS PRN (13:39)
[2024-02-22] MEDS ORDERED: hydrOXYzine PAMOATE 25 MG CAPSULE (FP) PO PRN (13:39)
[2024-02-22] MEDS ORDERED: NALOXONE HCL 0.4 MG/ML VIAL IM PRN (13:39)
[2024-02-22] MEDS ORDERED: ACETAMINOPHEN 325 MG TABLET (FP) PO PRN (13:39)
[2024-02-22] MEDS ORDERED: DICYCLOMINE HCL 10 MG CAPSULE PO PRN (13:39)
[2024-02-22] MEDS ORDERED: ONDANSETRON *ODT* 4 MG TABLET SL PRN (13:39)
[2024-02-22] MEDS ORDERED: MAG HYDROX/AL HYDROX/SIMETH 30 ML UNIT-DOSE CUP PO PRN (13:39)
[2024-02-22] MEDS ORDERED: BENZOCAINE/MENTHOL (CHLORASEPTIC ) LOZENGE MM PRN (13:39)
[2024-02-22] MEDS ORDERED: LOPERAMIDE HCL 2 MG CAPSULE PO PRN (13:39)
[2024-02-22] MEDS ORDERED: chlordiazePOXIDE HCL 25 MG CAPSULE ONE (13:49)
[2024-02-22] MEDS: chlordiazePOXIDE HCL 25 MG CAPSULE PO PRN (13:55)
[2024-02-22] MEDS: chlordiazePOXIDE HCL 25 MG CAPSULE PO SCH (17:06)
[2024-02-22] MEDS: IBUPROFEN 600 MG TABLET (FP) PO PRN (17:07)
[2024-02-22] MEDS: risperiDONE 1 MG TABLET PO SCH (22:20)
[2024-02-22] MEDS: MELATONIN 5 MG TABLETS PO SCH (22:20)
[2024-02-22] MEDS: THIAMINE 100 MG TABLET PO SCH (22:20)
[2024-02-23] MEDS: PRENATAL VITAMINS W/ FOLIC ACID TABLET (FP) PO SCH (09:20)
[2024-02-23] MEDS: VENLAFAXINE HCL 37.5 MG E.R. CAPSULE PO SCH (09:20)
[2024-02-23 12:18] LABS: HEMATOCRIT 39.1 % (35.4-49); HEMOGLOBIN 13.6 GM/dL (11.7-16.9); MCH 33.4 pg (25.7-33.7); MCHC 34.8 g/dl (32.0-35.9); MEAN CELL VOLUME 96.1 fl (80-96); MEAN PLT VOLUME 8.7 fl (7.5-11.1); PLATELET COUNT 239 10^3/uL (134-434); RBC 4.06 M/mm3 (4.00-5.60); RDW 12.9 % (11.9-15.9); WHITE BLOOD COUNT 4.6 K/mm3 (4.0-10.0)
[2024-02-23 13:16] LABS: POTASSIUM 3.7 mmol/L (3.5-5.1)
[2024-02-23 13:32] LABS: CALCIUM 8.6 mg/dL (8.5-10.1)
[2024-02-23 13:33] LABS: ALBUMIN 3.6 g/dl (3.4-5.0); BLOOD UREA NITROGEN 6.9 mg/dL (7-18)
[2024-02-23 13:36] LABS: CREATININE 0.7 mg/dL (0.55-1.3)
[2024-02-23 13:38] LABS: BILIRUBIN,TOTAL 0.4 mg/dL (0.2-1); TOT PROT 6.1 g/dl (6.4-8.2)
[2024-02-24] MEDS: chlordiazePOXIDE HCL 25 MG CAPSULE PO SCH (05:12)
[2024-02-24 08:31] VITALS: BP 109/77; PULSE 66; RESP 18; TEMP 97.6
[2024-02-25] MEDS ORDERED: chlordiazePOXIDE HCL 10 MG CAPSULE PO PRN
[2024-02-25] MEDS ORDERED: chlordiazePOXIDE HCL 10 MG CAPSULE PO SCH (05:00)
[2024-02-26] MEDS ORDERED: chlordiazePOXIDE HCL 10 MG CAPSULE PO SCH (05:00)
[2024-02-27] MEDS ORDERED: chlordiazePOXIDE HCL 10 MG CAPSULE PO ONE (05:00)
== END 2024-02-24 10:28 | disposition home or self-care (01) | DRG 775 ==
LOC: YASAS 11:48 → Y6N 13:56
PROVIDERS: ADMIT Allergy & Immunology; ATTEND Surgery
PROC: HZ2ZZZZ Detoxification Services for Substance Abuse Treatment (ICD-10-PCS; principal; 2024-02-22)
DX: F10.230 Alcohol dependence with withdrawal, uncomplicated (principal); F17.290 Nicotine dependence, other tobacco product, uncomplicated; F31.9 Bipolar disorder, unspecified; F19.24 Other psychoactive substance dependence with psychoactive substance-induced mood disorder; F41.9 Anxiety disorder, unspecified; F43.10 Post-traumatic stress disorder, unspecified; J45.20 Mild intermittent asthma, uncomplicated; K21.9 Gastro-esophageal reflux disease without esophagitis; L30.9 Dermatitis, unspecified; M41.9 Scoliosis, unspecified; M54.50 Low back pain, unspecified; G89.29 Other chronic pain; Z87.19 Personal history of other diseases of the digestive system
CPT/HCPCS: 36415; 80053; 80305; 80307; 85027; 86780; 93005; 93010